=== PATIENT | male | born 1955 | race Caucasian/White ===

== ENCOUNTER → 2019-03-28 | Day surgery (SDC) | payer BC ==
[~2019-03-28] MED LIST: IV RINGERS,LACTATED 1000ML 1,000 ML IV SCH; LIDOCAINE 1% PF 2 ML VIAL. ID PRN; LIDOCAINE 2% PF 5 ML VIAL. ONE; MIDAZOLAM HCL/PF 2 MG/2 ML VIAL. IV PRN; OMEP20TA63 PO; PROPOFOL 20 ML IV ONE; fentaNYL PF VIAL 100 MCG/2 ML VIAL IV PRN
[2019-03-28 10:53] VITALS: BP 142/88
--- NOTE | 2019-03-28 10:59 | HP ---
ADMIT DATE: 03/28/2019 REFERRING PHYSICIAN: Marty Brantley M.D. REASON FOR THE VISIT: Cancer surveillance. HISTORY OF PRESENT ILLNESS: This is a 63-year-old male whose past medical history is significant for colon cancer in the past with resection as well as hypertension, gastroesophageal reflux disease and colonic polyps, who is seen for interval exam. Bowel habits are regular, without diarrhea or constipation. There has been no melena or hematochezia. Weight and appetite are stable as well. He is otherwise without additional complaints. PAST MEDICAL HISTORY: Colon cancer, hypertension, GERD, Schatzki ring and arthritis. ALLERGIES: None. MEDICATIONS: Omeprazole 20 mg daily. FAMILY HISTORY: Significant for colon cancer in both parents and [place] with his mother. SOCIAL HISTORY: He is a social drinker and does use tobacco products. PAST SURGICAL HISTORY: Status post colon resection, tonsillectomy and eye surgery. REVIEW OF SYSTEMS: As per records. PHYSICAL EXAMINATION: GENERAL: This is a well-nourished, well-developed male, who is alert and cooperative, in no acute distress. VITAL SIGNS: Temperature 98.7, pulse 89 and respirations 20. HEENT EXAMINATION: Reveals normocephalic and atraumatic head. Pupils and extraocular movements are not tested. Sclerae anicteric. NECK: Supple. LUNGS: Clear. CARDIOVASCULAR EXAMINATION: Reveals S1, S2, without S3, S4 or appreciable murmur. ABDOMEN: Abdominal exam reveals a soft abdomen. Normal bowel sounds, without appreciable hepatosplenomegaly. EXTREMITIES: Extremity exam reveals no cyanosis, clubbing or edema. IMPRESSION: Colorectal screen, with a personal history of colon cancer and family history of colon cancer is recommended at this time. Risks and benefits were discussed. The patient is willing to proceed at this time. ANTELMO HAMEED MD DR: CHIARA/elaina JOB#: [id number] / [id number] Marty Colvin MD
== END ==
LOC: SURG 08:50
PROVIDERS: ATTEND Internal Medicine Gastroenterology
DX: Z12.11 Encounter for screening for malignant neoplasm of colon (principal); K57.30 Diverticulosis of large intestine without perforation or abscess without bleeding; K64.0 First degree hemorrhoids; I10 Essential (primary) hypertension; K21.9 Gastro-esophageal reflux disease without esophagitis; K22.2 Esophageal obstruction; Z85.038 Personal history of other malignant neoplasm of large intestine; Z87.39 Personal history of other diseases of the musculoskeletal system and connective tissue; Z72.89 Other problems related to lifestyle; Z72.0 Tobacco use; Z90.49 Acquired absence of other specified parts of digestive tract; Z98.890 Other specified postprocedural states; Z98.0 Intestinal bypass and anastomosis status
CPT/HCPCS: 45378; J2001; J2704